=== PATIENT | female | born 1950 | race Caucasian/White ===

== ENCOUNTER 2019-02-05 17:05 | Inpatient (IN) | payer MEDICARE, MEDICAID ==
[~2019-02-05] VITALS: Ht 160 cm; Wt 70.2 kg
--- NOTE | 2019-02-05 17:25 | NUR ---
MAINTENANCE CUSTODIAN: PT WALKED BACK FROM LOBBY TO ROOM AT THIS TIME. STEADY UPON AMBULATION.
--- NOTE | 2019-02-05 17:30 | NUR ---
CONTACT WITH PT, 68 YR OLD FEMALE HERE WITH C/O "FEELING LIKE CHICKEN STUCK IN THROAT" APPROX 2 HOURS AGO. ABLE TO TOLERATE FLUIDS. RYLIE OCHOA AT BEDSIDE TO KATARINA PT.
--- NOTE | 2019-02-05 17:45 | NUR ---
PT AND PTS SON UPDATED ON POC. NO NEEDS EXPRESSED AT THIS TIME.
--- NOTE | 2019-02-05 18:00 | NUR ---
PT TO RADIOLOGY VIA W/C
--- NOTE | 2019-02-05 18:17 | NUR ---
PT RETURN TO ROOM. NO CHANGE IN CONDITION NOTED.
[2019-02-05] MEDS ORDERED: GLUCAGON 1 MG IVPush ONE (19:00)
[2019-02-05] MEDS ORDERED: SODIUM CHLORIDE FLUSH 10ML SYR IVF ONE (19:00)
--- NOTE | 2019-02-05 19:02 | NUR ---
PT AMB TO BR, GAIT STEADY. REPORT TO LAZARO KENNY.
--- NOTE | 2019-02-05 19:05 | NUR ---
REPORT RECEIVED, POC DISCUSSED, CARE ASSUMED.
[2019-02-05] MEDS ORDERED: GLUCAGON 1 MG ONE (19:09)
--- NOTE | 2019-02-05 19:23 | NUR ---
MED GIVEN CHARTED, COLA AT BEDSIDE. PT IN NAD.
--- NOTE | 2019-02-05 19:32 | NUR ---
NO RELIEF WITH GLUCOGON OR COLA. GI CALLED.
--- NOTE | 2019-02-05 19:57 | NUR ---
GI EMT AT BEDSIDE EXPLAINING PROCEDURE. VS UPDATED.
[2019-02-05] MEDS ORDERED: PROPOFOL 100 ML IV ONE (20:12)
--- NOTE | 2019-02-05 20:25 | NUR ---
DR LE AT BEDSIDE FOR PROCEDURE, SEE PROCEDURAL SEDATION FLOWSHEET.
[2019-02-05] MEDS ORDERED: PROPOFOL 10 MG/ML, 20ML IVPush ONE (20:30)
[2019-02-05] MEDS ORDERED: PIPERACILLIN/TAZO/PMX 4.5GM 100 ML IV SCH (21:00)
--- NOTE | 2019-02-05 21:11 | NUR ---
PT IS AWAKE AND RESPONDING APPROPIATELY, PT TO BE ADMITTED FOR CONTINUING OBSERVATION AND POSSIBLE SX.
[2019-02-05] MEDS ORDERED: SODIUM CHLORIDE 0.9% 1,000 ML IV ONE (21:42)
--- NOTE | 2019-02-05 21:59 | NUR ---
PT UP TO BSC WITH LIQUID DIARRHEA. TRANSFERRED TO [facility] WITHOUT DIFFICULTY.
[2019-02-05] MEDS ORDERED: ONDANSETRON 2MG/ML, 2ML IVPush PRN ×2 (22:00→23:30)
[2019-02-05] MEDS ORDERED: MORPHINE SULFATE 4 MG/ML, 1ML IVPush PRN (22:00)
--- NOTE | 2019-02-05 22:21 | NUR ---
REPORT TO EFRAÍN DELATORRE. PT TO BE ADMITTED TO ROOM 459. PT WAITING TO BE SEEN BY ADMITTING .
[2019-02-05 22:27] LABS: ALANINE AMINOTRANSFERASE 20 U/L (12-78); ALBUMIN 3.6 g/dL (3.4-5.0); ANION GAP 8 mmol/L (5-15); CALCIUM 8.7 mg/dL (8.5-10.1); CHLORIDE 108 mmol/L (98-107); CREATININE 0.97 mg/dL (0.55-1.02)
[2019-02-05 22:30] LABS: ALKALINE PHOSPHATASE 75 U/L (45-117); BILIRUBIN,TOTAL 0.3 mg/dL (0.2-1.0); TOTAL PROTEIN 6.8 g/dL (6.4-8.2)
[2019-02-05 22:34] LABS: BASOPHILS # (AUTO) 0.04 x10^3/uL (0-0.1); BASOPHILS % (AUTO) 0 % (0-1); EOSINOPHILS # (AUTO) 0.11 x10^3/uL (0-0.4); EOSINOPHILS % (AUTO) 1 % (1-7); LYMPHOCYTES # (AUTO) 1.58 x10^3/uL (1-3.4); LYMPHOCYTES % (AUTO) 15 % (22-44); MD NO; MEAN CORPUSCULAR HEMOGLOBIN 30.3 pg (27.0-34.8); MEAN CORPUSCULAR HGB CONC 33.5 g/dL (32.4-35.8); MEAN CORPUSCULAR VOLUME 90.5 fL (80-100); MEAN PLATELET VOLUME 9.7 fL (7.4-10.4); MONOCYTES # (AUTO) 0.82 x10^3/uL (0.2-0.8); MONOCYTES % (AUTO) 8 % (2-9); NEUTROPHILS # (AUTO) 7.81 x10^3/uL (1.8-6.8); NEUTROPHILS % (AUTO) 75 % (42-75); PLATELET COUNT 212 x10^3/uL (130-400); RED BLOOD COUNT 4.59 x10^6/uL (3.82-5.3); RED CELL DISTRIBUTION WIDTH 13.2 % (9.6-15.2)
[2019-02-05 23:24] VITALS: BP 128/72
[2019-02-05] MEDS ORDERED: BISACODYL 10 MG SUPP PR PRN (23:30)
[2019-02-05] MEDS ORDERED: hydrALAzine 20 MG/ML, 1ML IVPush PRN (23:30)
[2019-02-05] MEDS ORDERED: LIDODERM 5% PATCH TD PRN (23:30)
[2019-02-05] MEDS: D5%-0.45% NACL 1,000 ML IV SCH (23:49)
[2019-02-06 02:32] VITALS: BP 137/71
[2019-02-06 04:57] LABS: BASOPHILS # (AUTO) 0.02 x10^3/uL (0-0.1); BASOPHILS % (AUTO) 0 % (0-1); EOSINOPHILS # (AUTO) 0.16 x10^3/uL (0-0.4); EOSINOPHILS % (AUTO) 2 % (1-7); LYMPHOCYTES # (AUTO) 1.62 x10^3/uL (1-3.4); LYMPHOCYTES % (AUTO) 21 % (22-44); MD NO; MEAN CORPUSCULAR HEMOGLOBIN 30.3 pg (27.0-34.8); MEAN CORPUSCULAR HGB CONC 33.5 g/dL (32.4-35.8); MEAN CORPUSCULAR VOLUME 90.3 fL (80-100); MEAN PLATELET VOLUME 9.7 fL (7.4-10.4); MONOCYTES # (AUTO) 0.49 x10^3/uL (0.2-0.8); MONOCYTES % (AUTO) 6 % (2-9); NEUTROPHILS # (AUTO) 5.55 x10^3/uL (1.8-6.8); NEUTROPHILS % (AUTO) 71 % (42-75); PLATELET COUNT 210 x10^3/uL (130-400); RED BLOOD COUNT 4.36 x10^6/uL (3.82-5.3); RED CELL DISTRIBUTION WIDTH 13.6 % (9.6-15.2)
[2019-02-06 05:01] LABS: ANION GAP 5 mmol/L (5-15); CALCIUM 8.6 mg/dL (8.5-10.1); CHLORIDE 111 mmol/L (98-107)
[2019-02-06] MEDS: PIPERACILLIN/TAZO/PMX 4.5GM 100 ML IV SCH ×3 (06:22→22:24)
[2019-02-06 08:34] VITALS: BP 129/75
[2019-02-06] MEDS: D5%-0.45% NACL 1,000 ML IV SCH ×2 (09:08→20:04)
[2019-02-06 12:39] VITALS: BP 128/83
[2019-02-06 19:15] VITALS: BP 138/89
[2019-02-07 02:10] VITALS: BP 115/67
[2019-02-07 04:06] LABS: BASOPHILS # (AUTO) 0.03 x10^3/uL (0-0.1); BASOPHILS % (AUTO) 1 % (0-1); EOSINOPHILS # (AUTO) 0.17 x10^3/uL (0-0.4); EOSINOPHILS % (AUTO) 4 % (1-7); LYMPHOCYTES # (AUTO) 1.75 x10^3/uL (1-3.4); LYMPHOCYTES % (AUTO) 39 % (22-44); MD NO; MEAN CORPUSCULAR HEMOGLOBIN 30.5 pg (27.0-34.8); MEAN CORPUSCULAR HGB CONC 33.4 g/dL (32.4-35.8); MEAN CORPUSCULAR VOLUME 91.3 fL (80-100); MEAN PLATELET VOLUME 9.7 fL (7.4-10.4); MONOCYTES # (AUTO) 0.57 x10^3/uL (0.2-0.8); MONOCYTES % (AUTO) 13 % (2-9); NEUTROPHILS # (AUTO) 1.98 x10^3/uL (1.8-6.8); NEUTROPHILS % (AUTO) 44 % (42-75); PLATELET COUNT 202 x10^3/uL (130-400); RED BLOOD COUNT 4.31 x10^6/uL (3.82-5.3); RED CELL DISTRIBUTION WIDTH 13.6 % (9.6-15.2)
[2019-02-07 04:12] LABS: PROTHROMBIN TIME 10.5 Seconds (9.6-11.5)
[2019-02-07 04:19] LABS: ANION GAP 4 mmol/L (5-15); CALCIUM 8.3 mg/dL (8.5-10.1); CHLORIDE 114 mmol/L (98-107)
[2019-02-07 04:23] LABS: CREATININE 0.94 mg/dL (0.55-1.02)
[2019-02-07 04:24] LABS: ALANINE AMINOTRANSFERASE 15 U/L (12-78); ALKALINE PHOSPHATASE 52 U/L (45-117); BILIRUBIN,TOTAL 0.7 mg/dL (0.2-1.0); TOTAL PROTEIN 5.8 g/dL (6.4-8.2)
[2019-02-07] MEDS: PIPERACILLIN/TAZO/PMX 4.5GM 100 ML IV SCH ×2 (06:11→14:45)
[2019-02-07] MEDS: D5%-0.45% NACL 1,000 ML IV SCH (06:11)
[2019-02-07 06:18] VITALS: BP 147/88
[2019-02-07 12:51] VITALS: BP 138/71
== END 2019-02-07 17:07 | disposition home or self-care (01) | DRG 393 ==
LOC: ED 19:33 → EDIP 21:42 → 4NOR 23:06 → DCLOUNGE 02-07 17:00
PROVIDERS: ADMIT Family Medicine; ATTEND Internal Medicine
PROC: 0DC18ZZ Extirpation of Matter from Upper Esophagus, Via Natural or Artificial Opening Endoscopic (ICD-10-PCS; principal; 2019-02-05 20:23)
DX: T18.128A Food in esophagus causing other injury, initial encounter (principal); K22.3 Perforation of esophagus; I10 Essential (primary) hypertension; E78.00 Pure hypercholesterolemia, unspecified; E78.5 Hyperlipidemia, unspecified; J44.9 Chronic obstructive pulmonary disease, unspecified; K22.8 Other specified diseases of esophagus; K27.9 Peptic ulcer, site unspecified, unspecified as acute or chronic, without hemorrhage or perforation; K44.9 Diaphragmatic hernia without obstruction or gangrene; K57.30 Diverticulosis of large intestine without perforation or abscess without bleeding; M41.9 Scoliosis, unspecified; R13.14 Dysphagia, pharyngoesophageal phase; T17.228A Food in pharynx causing other injury, initial encounter; X58.XXXA Exposure to other specified factors, initial encounter; Y93.89 Activity, other specified; Y92.89 Other specified places as the place of occurrence of the external cause; Y99.8 Other external cause status; Z78.0 Asymptomatic menopausal state; Z80.0 Family history of malignant neoplasm of digestive organs; Z80.1 Family history of malignant neoplasm of trachea, bronchus and lung; Z81.8 Family history of other mental and behavioral disorders; Z87.11 Personal history of peptic ulcer disease; Z87.891 Personal history of nicotine dependence
CPT/HCPCS: 36415; 74220; 80048; 80053; 85025; 85610; 99152; G0378; J2543; J2704; J1610; J7030